=== PATIENT | female | born 1960 | race Caucasian/White ===

== ENCOUNTER 2016-12-26 10:52 | Emergency (ER) | payer OTHER ==
[2016-12-26 11:13] VITALS: BP 127/75; PULSE 98; TEMP 98.5; BMI 23.3
--- NOTE | 2016-12-26 11:37 | PDOC ---
History of Present Illness - General Chief Complaint: Bite Stated Complaint: POSSIBLE INSECT BITES TO HANDS Time Seen by Provider: 12/26/16 10:57 History Source: Patient Exam Limitations: No Limitations - History of Present Illness Initial Comments: 12/26/16 11:32 The patient is a 56F with a PMH of major depressive disorder who presents to the ED with complaints of L hand itching. The patient recently moved from [place] (3-4 weeks ago) and states that her movers told her she had spider eggs in her bed frame. The movers cleaned out the spider eggs. The patient states that she woke up this morning and her L hand palmar surface was itchy. She also states that there is an excoriation that has been there for 2 days. All: PCN Social: 1/2 ppd, occasional drinking, no drugs Past History - Past Medical History Allergies/Adverse Reactions: Allergies Allergy/AdvReac Type Severity Reaction Status Date / Time Penicillins Allergy Intermediate Swelling Verified 12/26/16 10:54 Home Medications: Ambulatory Orders Clonazepam [KlonoPIN] 0.5 mg PO DAILY 12/26/16 Fluoxetine HCl [Prozac -] 60 mg PO DAILY 12/26/16 Lamotrigine [Lamictal] 500 mg PO DAILY 12/26/16 Other medical history: DEPRESSION,SCOLIOSIS - Psycho/Social/Smoking Cessation Hx Anxiety: No (DEPRESSION) Suicidal Ideation: No Smoking History: Current every day smoker Number of Cigarettes Smoked Daily: 10 Information on smoking cessation initiated: Yes 'Breaking Loose' booklet given: 12/26/16 Hx Alcohol Use: No Drug/Substance Use Hx: No Substance Use Type: Alcohol Review of Systems - Review of Systems Able to Perform ROS?: Yes Is the patient limited Greek proficient: No Constitutional: No: Chills, Fever Respiratory: No: Cough, Shortness of Breath Cardiac (ROS): No: Chest Pain Integumentary: Yes: Pruritus, Rash (L palmar surface) *Physical Exam - Vital Signs Last Vital Signs Temp Pulse Resp BP Pulse Ox 98.5 F 98 H 16 127/75 98 12/26/16 10:53 12/26/16 10:53 12/26/16 10:53 12/26/16 10:53 12/26/16 10:53 - Physical Exam General Appearance: Yes: Nourished, Appropriately Dressed, Disheveled HEENT: positive: Normal Voice, Hearing Grossly Normal Respiratory/Chest: negative: Respiratory Distress, Accessory Muscle Use, Labored Respiration Cardiovascular: positive: Regular Rhythm, Regular Rate Integumentary: positive: Rash (L palmar. 1 1/2 cm excoriated papule. No rash noted in/on mouth/feet.) Medical Decision Making - Medical Decision Making 12/26/16 11:38 The patient is a 56F with a PMH of MDD who presents with 1.5 days of L palmar itching with a mild rash. The patient has been advised to take benadryl and f/u with a investor. 12/26/16 11:50 I instructed the patient to follow up with a investor and take benadryl as needed for itching relief. Patient understands and is ready for discharge. *DC/Admit/Observation/Transfer Diagnosis at time of Disposition: Itching - Discharge Dispostion Disposition: HOME Condition at time of disposition: Stable Admit: No - Patient Instructions Printed Discharge Instructions: DI for Itching Additional Instructions: Please return to the ER if symptoms persist, worsen, or if new symptoms arise. Please follow up with a investor and take benadryl as needed and as prescribed for itching relief. - Attestations Physician Attestion: 12/26/16 11:52 I, Dr. Esdras Zhou, attest that this document has been prepared under my direction and personally reviewed by me in its entirety. I further attest, that it accurately reflects all work, treatment, procedures and medical decision -making performed by me.
--- NOTE | 2016-12-26 11:45 | PDOC ---
Attending Attestation - Resident Resident Name: Esdras Zhou - ED Attending Attestation I have performed the following: I have examined & evaluated the patient, The case was reviewed & discussed with the resident, I agree w/resident's findings & plan, Exceptions are as noted - HPI HPI: 12/26/16 11:55 Agree with the resident's HPI as documented in the electronic medical record. - Physicial Exam PE: 12/26/16 11:55 Agree with the resident's physical examination as documented in the electronic medical record. - Medical Decision Making 12/26/16 11:45 56 y/o female with h/o psych disorder presents to the ED with c/o one day h/o pruritic rash to the palm of her left hand. DDx includes but is not limited to : eczema, blisters, allergic/contact dermatitis. The wounds do not appear to be infectious in nature. Plan: 1. anti-histamines 2. cortisone cream 3. follow-up with dermatology 4. Return to the ED if Sx persist, worsen or new Sx ariswe.
== END 2016-12-26 11:57 | disposition home or self-care (01) ==
LOC: FER 10:52
DX: L29.9 Pruritus, unspecified (principal); F32.9 Major depressive disorder, single episode, unspecified; F17.210 Nicotine dependence, cigarettes, uncomplicated
CPT/HCPCS: 99281-25

== ENCOUNTER 2018-11-23 10:43 | Emergency (ER) | payer OTHER ==
[2018-11-23] MEDS ORDERED: TETRACAINE 0.5% OPHTH SOLN 2 ML BOTTLE ONE (11:00)
[2018-11-23] MEDS ORDERED: FLUORESCEIN NA 1 EA STRIP ONE (11:00)
[2018-11-23 11:13] VITALS: BP 85/56; PULSE 70; TEMP 98.4; BMI 22.4
--- NOTE | 2018-11-23 11:39 | PDOC ---
History of Present Illness - General Chief Complaint: Eye Problem Stated Complaint: LEFT EYE SCRATCH Time Seen by Provider: 11/23/18 11:06 History Source: Patient Exam Limitations: No Limitations - History of Present Illness Initial Comments: 11/23/18 11:22 Ms. Duarte is a 58 yo F who presents to the ER with a complaint of left eye pain Pt was in her usual state of health when she exited her home and a cardboard box scratched her left eye Pt noted pain No blurry vision/or vision changes Pt thought pain would improve but when it didn't, she came in to the ER to be assessed PMH:depression PSH: denies Meds: see MAR ALL: PCN Social: denies drug use FH: non contributory ROS: GENERAL/CONSTITUTIONAL: No: fever, chills HEAD, EYES, EARS, NOSE AND THROAT: Yes: eye pain No: change in vision CARDIOVASCULAR: No: chest pain RESPIRATORY: No: cough, shortness of breath GASTROINTESTINAL: No: nausea, vomiting, diarrhea, abdominal pain GENITOURINARY: No: dysuria, hematuria in. MUSCULOSKELETAL: No: back pain, neck pain, joint pain, muscle swelling or pain SKIN: No: lesions, pallor, rash or easy bruising. NEUROLOGIC: No: headache, vertigo, paresthesias, weakness PE: GENERAL: The patient is in no acute distress. HEAD: Normal EYES: PERRLA, EOMI, sclera anicteric, left conjunctiva erythematous Visual Acquity: R:20/25 L: 20/25. Flourescine: faint uptake inferior conjunctiva overlying iris no foreign body appreciated Pupil is round, no fluid noted in the anterior chamber ENT: Moist mucous membranes. NECK: Normal range of motion, supple LUNGS: Breath sounds equal, clear to auscultation bilaterally. HEART:Regular rate and rhythm ABDOMEN: Soft, nontender, normoactive bowel sounds. EXTREMITIES: Normal range of motion NEUROLOGICAL: Cranial nerves II through XII grossly intact. Normal speech. No focal neurological deficits. MUSCULOSKELETAL: Back non-tender to palpation SKIN: no erythema of the eye lid 11/24/18 18:15 Past History - Past Medical History Allergies/Adverse Reactions: Allergies Allergy/AdvReac Type Severity Reaction Status Date / Time Penicillins Allergy Intermediate Swelling Verified 12/26/16 10:54 Home Medications: Ambulatory Orders clonazePAM [KlonoPIN] 0.5 mg PO BID 12/26/16 B-12 11/23/18 Biotin 10,000 mcg PO DAILY 11/23/18 Ciprofloxacin 0.3% Eye Drops [Ciloxan 0.3% Eye Drops --] 2 drop OS Q4HWA 5 Days #1 bottle 11/23/18 Docosahexanoic Acid/Epa [Fish Oil Concentrate Softgel] 1 each PO DAILY 11/23/18 Fluoxetine HCl [Prozac] 80 mg PO DAILY 11/23/18 Gabapentin [Neurontin] 300 mg PO HS 11/23/18 Lamotrigine [Lamictal] 150 mg PO BID 11/23/18 COPD: No Psychiatric Problems: Yes (DEPRESSION) - Suicide/Smoking/Psychosocial Hx Smoking History: Current every day smoker Number of Cigarettes Smoked Daily: 10 Information on smoking cessation initiated: Yes 'Breaking Loose' booklet given: 12/26/16 Hx Alcohol Use: Yes (SOCIAL) Drug/Substance Use Hx: No Substance Use Type: Alcohol *Physical Exam - Vital Signs Last Vital Signs Temp Pulse Resp BP Pulse Ox 98.4 F 70 16 85/56 L 100 11/23/18 10:44 11/23/18 10:44 11/23/18 10:44 11/23/18 10:44 11/23/18 10:44 Medical Decision Making - Medical Decision Making 11/23/18 11:39 Pt presents with what is most likely a corneal abrasion I do not see evidence at this time of foreign body in the eye will: Start Oflaxin Motrin for pain Follow up with Ophtho today (referral given) Clinical impression: corneal abrasion, initial presentation *DC/Admit/Observation/Transfer Diagnosis at time of Disposition: Corneal abrasion, left Qualifiers: Encounter type: initial encounter Qualified Code(s): S05.02XA - Injury of conjunctiva and corneal abrasion without foreign body, left eye, initial encounter - Discharge Dispostion Disposition: HOME Condition at time of disposition: Stable Decision to Admit order: No - Prescriptions Prescriptions: Ciprofloxacin 0.3% Eye Drops [Ciloxan 0.3% Eye Drops --] 2 drop OS Q4HWA 5 Days #1 bottle - Referrals Referrals: Adrian Milan MD [Staff Physician] - - Patient Instructions Printed Discharge Instructions: DI for Corneal Abrasion Additional Instructions: Thank you for coming in to the ER today Today you were seen for a corneal abrasion. Use the antibiotic eye drops as directed. You may take Tylenol or Motrin as needed for pain. Call the office of the activated sludge attendant Dr. Sandhu to schedule a follow up appointment within 24-48 hours. Follow up with your primary care provider within 24 to 48 hours. Go to the emergency room if any new or worsening symptoms develop. - Post Discharge Activity
== END 2018-11-23 12:10 | disposition home or self-care (01) ==
LOC: FER 10:43
DX: S05.02XA Injury of conjunctiva and corneal abrasion without foreign body, left eye, initial encounter (principal); X58.XXXA Exposure to other specified factors, initial encounter; Y93.89 Activity, other specified; Y92.89 Other specified places as the place of occurrence of the external cause; F17.210 Nicotine dependence, cigarettes, uncomplicated; F32.9 Major depressive disorder, single episode, unspecified
CPT/HCPCS: 99281-25

== ENCOUNTER 2020-11-26 08:37 | Emergency (ER) | payer OTHER ==
[2020-11-26 08:47] VITALS: BP 108/74; PULSE 85; TEMP 98.1; BMI 25.0
[2020-11-26] MEDS ORDERED: IBUPROFEN 600 MG TABLET (FP) PO ONE ×2 (08:49→08:53)
== END 2020-11-26 10:09 | disposition home or self-care (01) ==
LOC: FER 08:37
DX: S93.402A Sprain of unspecified ligament of left ankle, initial encounter (principal)
CPT/HCPCS: 73610-TC-LT-FY; 99283-25

== ENCOUNTER 2022-02-13 10:54 | Emergency (ER) | payer OTHER ==
[2022-02-13 11:08] VITALS: BP 122/86; PULSE 74; RESP 14; TEMP 98.1; BMI 23.3
[2022-02-13] MEDS ORDERED: CEPHALEXIN MONOHYDRATE 500 MG CAPSULE (UD) PO ONE (12:02)
[2022-02-13] MEDS ORDERED: CEPHALEXIN MONOHYDRATE 500 MG CAPSULE (UD) ONE (12:02)
== END 2022-02-13 12:23 | disposition home or self-care (01) ==
LOC: FER 10:54
DX: S61.032A Puncture wound without foreign body of left thumb without damage to nail, initial encounter (principal); Y92.007 Garden or yard of unspecified non-institutional (private) residence as the place of occurrence of the external cause
CPT/HCPCS: 73140-TC-LT-FY; 99283-25

== ENCOUNTER 2023-07-09 10:51 | Emergency (ER) | payer OTHER ==
[2023-07-09 11:00] VITALS: BP 132/87; PULSE 109; RESP 17; TEMP 98.6; BMI 23.3
== END 2023-07-09 11:25 | disposition home or self-care (01) ==
LOC: FER 10:51
DX: B35.1 Tinea unguium (principal)
CPT/HCPCS: 99283-25

== ENCOUNTER 2024-02-28 09:51 | Emergency (ER) | payer OTHER ==
[2024-02-28 10:05] VITALS: BP 122/72; PULSE 81; RESP 20; TEMP 98.6; BMI 24.1
[2024-02-28 12:03] LABS: PH,URINE 6.5 (5.0-8.0); URINE APPEARANCE CLEAR; URINE BILIRUBIN NEGATIVE (NEGATIVE); URINE COLOR YELLOW; URINE GLUCOSE (UA) NEGATIVE (NEGATIVE); URINE KETONE NEGATIVE (NEGATIVE); URINE LEUK ESTERASE 1+ (NEGATIVE); URINE NITRITE NEGATIVE (NEGATIVE); URINE PROTEIN NEGATIVE (NEGATIVE); URINE UROBILINOGEN 0.2 mg/dL (0.2-1.0)
[2024-02-28 12:05] LABS: BASO % 0.7 % (0-2.0); EOS % 6.2 % (0-4.5); HEMATOCRIT 40.4 % (32.4-45.2); HEMOGLOBIN 12.9 GM/dL (10.7-15.3); LYMPH % 17.2 % (8-40); MCH 27.3 pg (25.7-33.7); MCHC 31.8 g/dl (32.0-36.0); MEAN CELL VOLUME 85.7 fl (80-96); MEAN PLT VOLUME 8.3 fl (7.5-11.1); MONO % 7.5 % (3.8-10.2); NEUT % 68.4 % (42.8-82.8); PLATELET COUNT 264 10^3/uL (134-434); RBC 4.71 M/mm3 (3.60-5.2); WHITE BLOOD COUNT 11.1 K/mm3 (4.0-10.0)
[2024-02-28 12:08] LABS: URINE RBC 13.7 /uL (0-23.9)
[2024-02-28 12:09] LABS: EPI CELLS 6 /uL (0-25.1); HYALINE CASTS 0.13 /uL (0-3.1); URINE BACTERIA 271.9 /uL (0-1359); URINE WBC 31.6 /uL (0-25.8)
[2024-02-28 12:32] LABS: POTASSIUM 4.3 mmol/L (3.5-5.1)
[2024-02-28 12:35] LABS: CALCIUM 10.2 mg/dL (8.5-10.1)
[2024-02-28 12:37] LABS: ALBUMIN 3.8 g/dl (3.4-5.0); BLOOD UREA NITROGEN 14.5 mg/dL (7-18)
[2024-02-28 12:39] LABS: CREATININE 0.8 mg/dL (0.55-1.3)
[2024-02-28 12:40] LABS: BILIRUBIN,TOTAL 0.5 mg/dL (0.2-1); TOT PROT 7.3 g/dl (6.4-8.2)
== END 2024-02-28 13:13 | disposition home or self-care (01) ==
LOC: JER 09:51
DX: M54.50 Low back pain, unspecified (principal); N30.00 Acute cystitis without hematuria; R35.0 Frequency of micturition; R39.15 Urgency of urination
CPT/HCPCS: 36415; 80053; 81003; 85025; 87086; 87186; 99283-25